=== PATIENT | female | born 1975 | race Caucasian/White ===

== ENCOUNTER 2018-11-26 20:53 | Emergency (ER) | payer MEDICAID ==
[~2018-11-26] VITALS: Ht 152.4 cm; Wt 88.9 kg
[~2018-11-26 20:53] MED LIST: NORCO1 TA2 PO; ZOF4 PO
[2018-11-26 20:56] VITALS: Ht 152.4 cm; Wt 88.9 kg
[2018-11-26 22:40] VITALS: BP 148/91
== END 2018-11-26 22:40 | disposition home or self-care (01) ==
LOC: ED 20:53
DX: R51 Headache (principal); R20.2 Paresthesia of skin; E78.00 Pure hypercholesterolemia, unspecified; Z88.0 Allergy status to penicillin; Z90.49 Acquired absence of other specified parts of digestive tract
CPT/HCPCS: J1885